=== PATIENT | female | born 1995 | race Caucasian/White ===

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

== ENCOUNTER 2018-12-02 14:56 | Emergency (ER) | payer BC ==
--- NOTE | 2018-12-02 15:06 | EDM.PDOC ---
ED HPI GENERAL MEDICAL PROBLEM - General Chief Complaint: Lower Extremity Injury/Pain Stated Complaint: INJURED RIGHT PINKY TOE Time Seen by Provider: 12/02/18 14:57 Source of Information: Reports: Patient History Limitations: Reports: No Limitations - History of Present Illness INITIAL COMMENTS - FREE TEXT/NARRATIVE: HISTORY AND PHYSICAL: History of present illness: 23-year-old female presenting to the emergency room for complaints of left toe pain. Patient states that 3 days ago she was walking out of her bedroom and was stepping over a gate she "hit her left foot on the doorway". She states that she sustained a scrape injury but "did not think anything of it". She states for the last 3 days at the injury has gotten worse as far as "bruising, swelling and pain". Patient denies any fever, chills, headache, change in vision, syncope or near syncope. Denies any chest pain, back pain, shortness of breath or cough. Denies any abdominal pain, nausea, vomiting, diarrhea, constipation or dysuria. Has not noted any blood in urine or stool. Patient has been eating and drinking appropriately. Review of systems: As per history of present illness and below otherwise all systems reviewed and negative. Past medical history: As per history of present illness and as reviewed below otherwise noncontributory. Surgical history: As per history of present illness and as reviewed below otherwise noncontributory. Social history: See social history for further information Family history: As per history of present illness and as reviewed below otherwise noncontributory. Physical exam: General: Well-developed and well-nourished 23-year-old female. Alert and oriented. Nontoxic appearing and in no acute distress. HEENT: Atraumatic, normocephalic, pupils equal and reactive bilaterally, negative for conjunctival pallor or scleral icterus, mucous membranes moist, trachea midline. No drooling or trismus noted. No meningeal signs. No hot potato voice noted. Lungs: Clear to auscultation, breath sounds equal bilaterally, chest nontender. Heart: S1S2, regular rate and rhythm without overt murmur Abdomen: Soft, nondistended, nontender. Skin: Small abrasion noted at the left fifth digit. Otherwise skin is intact, warm, dry. No lesions or rashes noted. Extremities: Pain located between the metatarsal pharyngeal joint of the fifth digit on the left foot. She moves all extremities per self without difficulty or deficits, negative for cords or calf pain. Neurovascular unremarkable. Neuro: Awake, alert, oriented. Cranial nerves II through XII unremarkable. Cerebellum unremarkable. Motor and sensory unremarkable throughout. Exam nonfocal. Notes: X-ray shows no acute findings. Postop shoe given for comfort. Supportive care measures were reviewed and discussed. Voices understanding and is agreeable to plan of care. Denies any further questions or concerns at this time. Diagnostics: X-ray right 5th digit Therapeutics: Post Op Shoe Prescription: None Impression: Toe injury, left fifth digit Plan: 1. Rest, ice, elevate the affected extremity. Please wear the shoe as directed. 2. Tylenol and/or Ibuprofen as needed for pain management. 3. Follow up with the Orthopedic provider as we discussed. Return to the ED as needed and as discussed. Definitive disposition and diagnosis as appropriate pending reevaluation and review of above. left 5th digit Pain Score (Numeric/FACES): 6 - Related Data Allergies Allergy/AdvReac Type Severity Reaction Status Date / Time nut - unspecified Allergy Difficulty Verified 12/27/16 16:51 Breathing peanut Allergy Rash Verified 12/02/18 15:08 Home Meds: Home Meds . [No Known Home Meds] 12/02/18 [History] Past Medical History - Past Health History Medical/Surgical History: Denies Medical/Surgical History - Past Surgical History HEENT Surgical History: Reports: Adenoidectomy, Tonsillectomy Social & Family History - Family History Family Medical History: Noncontributory Review of Systems - Review of Systems Review Of Systems: ROS reveals no pertinent complaints other than HPI. ED EXAM, GENERAL - Physical Exam Exam: See Below (See dictation) Course - Vital Signs Last Recorded V/S: Last Vital Signs Temp 97.2 F 12/02/18 15:00 Pulse 85 12/02/18 15:00 Resp 16 12/02/18 15:00 BP 137/87 12/02/18 15:00 Pulse Ox 98 12/02/18 15:00 Departure - Departure Time of Disposition: 16:07 Disposition: Home, Self-Care 01 Clinical Impression: Injury of toe on left foot Qualifiers: Encounter type: initial encounter Qualified Code(s): S99.922A - Unspecified injury of left foot, initial encounter - Discharge Information Referrals: PCP,None [Primary Care Provider] - Forms: ED Department Discharge Additional Instructions: The following information is given to patients seen in the emergency department who are being discharged to home. This information is to outline your options for follow-up care. We provide all patients seen in our emergency department with a follow-up referral. The need for follow-up, as well as the timing and circumstances, are variable depending upon the specifics of your emergency department visit. If you don't have a primary care physician on staff, we will provide you with a referral. We always advise you to contact your personal physician following an emergency department visit to inform them of the circumstance of the visit and for follow-up with them and/or the need for any referrals to a consulting specialist. The emergency department will also refer you to a specialist when appropriate. This referral assures that you have the opportunity for follow-up care with a specialist. All of these measure are taken in an effort to provide you with optimal care, which includes your follow-up. Under all circumstances we always encourage you to contact your private physician who remains a resource for coordinating your care. When calling for follow-up care, please make the office aware that this follow-up is from your recent emergency room visit. If for any reason you are refused follow-up, please contact the [facility] Emergency Department at and asked to speak to the emergency department charge nurse. [facility] [address] [place] [address] [place] [address] 1. Rest, ice, elevate the affected extremity. Please wear the shoe as directed. 2. Tylenol and/or Ibuprofen as needed for pain management. 3. Follow up with the Orthopedic provider as we discussed. Return to the ED as needed and as discussed.
--- NOTE | 2018-12-02 15:59 | CR ---
INDICATIONS: Stubbed toe Three-views of the left 5th toe Findings: There soft tissue swelling. Normal alignment. No acute fracture. Dictated by Martine Grimes MD @ Dec 02 2018 3:56PM Signed by Dr. Martine Grimes @ Dec 02 2018 3:57PM
[2018-12-02 16:37] VITALS: BP 118/88
== END 2018-12-02 16:29 | disposition home or self-care (01) ==
LOC: MW.ED 14:56
DX: S90.415A Abrasion, left lesser toe(s), initial encounter (principal); Z91.010 Allergy to peanuts; Z91.018 Allergy to other foods; Z98.890 Other specified postprocedural states; W22.8XXA Striking against or struck by other objects, initial encounter
CPT/HCPCS: 73660-26-T4; 73660-T4; 99283-25